=== PATIENT | female | born 1990 | race Hispanic/Latino ===

== ENCOUNTER 2023-01-25 08:00 | Emergency (ER) | payer MEDICAID ==
[~2023-01-25] VITALS: Ht 149.9 cm; Wt 72.6 kg
[2023-01-25 08:01] VITALS: BP 142/89
[2023-01-25] MEDS ORDERED: CLIN-141 PO (08:13)
== END 2023-01-25 08:21 | disposition home or self-care (01) ==
LOC: EDH 08:00
DX: H66.91 Otitis media, unspecified, right ear (principal); I10 Essential (primary) hypertension; E03.9 Hypothyroidism, unspecified; Z90.49 Acquired absence of other specified parts of digestive tract; Z90.89 Acquired absence of other organs; Z98.890 Other specified postprocedural states; Z88.0 Allergy status to penicillin

== ENCOUNTER 2023-09-24 13:08 | Emergency (ER) | payer MEDICAID ==
[~2023-09-24] VITALS: Ht 144.8 cm; Wt 59.0 kg
[~2023-09-24 13:08] MED LIST: CLIN-141 PO
[2023-09-24 13:35] VITALS: BP 124/88; PULSE 95; RESP 20
[2023-09-24] MEDS ORDERED: IBUP-2070 PO (15:39)
[2023-09-24] MEDS ORDERED: IBUPROFEN 600 MG TABLET PO ONE (16:00)
== END 2023-09-24 16:08 | disposition home or self-care (01) ==
LOC: EDH 13:08
DX: S63.91XA Sprain of unspecified part of right wrist and hand, initial encounter (principal); E03.9 Hypothyroidism, unspecified; I10 Essential (primary) hypertension; Z88.0 Allergy status to penicillin; Z90.49 Acquired absence of other specified parts of digestive tract; X58.XXXA Exposure to other specified factors, initial encounter; Y93.89 Activity, other specified; Y92.89 Other specified places as the place of occurrence of the external cause; Y99.8 Other external cause status
CPT/HCPCS: 29125; 29130; 73110; 73130